=== PATIENT | female | born 1975 | race Caucasian/White ===

== ENCOUNTER 2018-03-13 14:59 | Outpatient (CLI) | END 2018-03-13 17:20 | disposition home or self-care (01) ==

== ENCOUNTER 2018-03-24 17:50 | Inpatient (IN) | END 2018-04-01 16:00 | disposition home or self-care (01) | DRG 765 ==

== ENCOUNTER 2019-04-10 10:02 | Inpatient (IN) | payer OTHER ==
[~2019-04-10] VITALS: Ht 157.5 cm; Wt 72.5 kg
[~2019-04-10 10:02] MED LIST: FER325 PO; FOLI-49 PO; PREN-6 PO
[2019-04-10] MEDS ORDERED: morphine 4 MG/ML VIAL IV STA (11:04)
[2019-04-10] MEDS ORDERED: ONDANSETRON 4 MG INJ IV STA (11:04)
--- NOTE | 2019-04-10 11:04 | ERD ---
ER Documentation Chief Complaint Chief Complaint LOWER ABDOMINAL PAIN HPI This is a 43-year-old female presents to the emergency department with abdominal pain. She indicated it began yesterday evening it was a cramping-like sensati on. However the pain has radiated to her right lower quadrant and significantly worsened. She states the pain is 10 out of 10 in intensity. Her past surgical history includes a section most recently 1 year ago. She states that since getting her menstrual cycles post section she does experience similar severe pain however it is most prominent in the suprapubic region and today it radiated to the right lower quadrant which worsened and therefore she came to the emergency department to be further evaluated. She did start her menstrual cycle yesterday. She denies any frequency urgency or dysuria. She has no alleviating or exacerbating factors to the pain. She states she has not experience flatulence or had a bowel movement in 12 hours. She has not experienced any emesis. She denies any chest pain or pressure. ROS All systems reviewed and are negative except as per history of present illness. Medications Home Meds Reported Medications Ibuprofen* (Ibuprofen*) 800 Mg Tab, 800 MG PO NEEDED PRN for PAIN, TAB 04/10/19 Docusate Sodium* (Colace*) 100 Mg Capsule, 200 MG PO Q24H PRN for CONSTIPATION, #30 CAP 04/10/19 Discontinued Reported Medications Folic Acid* (Folic Acid*) 1 Mg Tablet, 1 MG PO DAILY, TAB 03/24/18 Ferrous Sulfate* (Ferrous Sulfate*) 325 Mg Tabec, 325 MG PO DAILY, TAB 03/24/18 Vits #93-Iron Fum-FA ( Formula) 1 Each Tablet, 1 TAB PO DAILY, TAB 03/24/18 Allergies Allergies: Coded Allergies: No Known Drug Allergies (Verified Allergy, Unknown, 04/10/19) Uncoded Allergies: sea food (Adverse Reaction, Mild, 03/29/18) diarrha, stomache pain Physical Exam Vitals Vital Signs Date Temp Pulse Resp B/P (MAP) Pulse Ox O2 O2 Flow FiO2 Time Delivery Rate 04/10/19 98.0 87 18 113/63 100 Room Air 12:42 (80) 04/10/19 98.0 80 18 133/71 99 10:06 (91) Physical Exam Constitutional:Well-developed. Well-nourished. Patient appears to be in discomfort secondary to pain HEENT:Normocephalic. Atraumatic.Pupils were equal round reactive to light. Moist mucous membranes.No tonsillar exudates. Neck: No nuchal rigidity. No lymphadenopathy. No posterior cervical spine tenderness or step-offs. Respiratory: Not using accessory muscles of respiration.Lungs were clear to auscultation bilaterally. No rhonchi. No rales. No wheezing. Cardiovascular: Regular rate regular rhythm.No murmurs. No rubs were appreciated.S1, S2 normal. Distal pulses are palpable 2+ bilaterally. GI: Abdomen was soft. Right lower quadrant tenderness. Non Distended. No pulsatile abdominal masses or bruits. No rebound. No guarding. Bowel sounds were present and normal. Muscle skeletal: Full range of motion of both the upper and lower extremities bilaterally.Normal muscle tone.No assymetrical calf tenderness or swelling. Skin: No petechia, no purpura. No lesions on the palms or the soles of the feet. No maculopapular rash. NEURO: Patient was alert, awake, orientated x3.No facial droop. Gait observed and normal with no ataxia.Speech had regular rate and rhythm. No focal neurological deficits. Result Diagram: 04/10/19 1052 04/10/19 1052 Results 24 hrs Laboratory Tests Test 04/10/19 10:52 04/10/19 11:10 04/10/19 11:11 White Blood Count 7.1 10^3/ul Red Blood Count 4.69 10^6/ul Hemoglobin 13.7 g/dl Hematocrit 41.5 % Mean Corpuscular Volume 88.5 fl Mean Corpuscular Hemoglobin 29.2 pg Mean Corpuscular 33.0 g/dl Hemoglobin Concent Red Cell Distribution Width 12.9 % Platelet Count 248 10^3/UL Mean Platelet Volume 9.8 fl Immature Granulocytes % 0.300 % Neutrophils % 72.9 % Lymphocytes % 20.7 % Monocytes % 3.7 % Eosinophils % 1.8 % Basophils % 0.6 % Nucleated Red Blood Cells % 0.0 /100WBC Immature Granulocytes # 0.020 10^3/ul Neutrophils # 5.1 10^3/ul Lymphocytes # 1.5 10^3/ul Monocytes # 0.3 10^3/ul Eosinophils # 0.1 10^3/ul Basophils # 0.0 10^3/ul Nucleated Red Blood Cells # 0.0 10^3/ul Prothrombin Time 13.5 Sec Prothrombin Time Ratio 1.1 INR International Normalized Ratio 1.02 Activated Partial Thromboplast 30.8 Sec Time Sodium Level 142 mmol/L Potassium Level 3.6 mmol/L Chloride Level 109 mmol/L Carbon Dioxide Level 24 mmol/L Anion Gap 9 Blood Urea Nitrogen 11 mg/dl Creatinine 0.56 mg/dl Est Glomerular Filtrat Rate mL/min > 60 mL/min Glucose Level 113 mg/dl Calcium Level 9.0 mg/dl Total Bilirubin 0.5 mg/dl Direct Bilirubin 0.00 mg/dl Indirect Bilirubin 0.5 mg/dl Aspartate Amino Transf (AST/SGOT) 26 IU/L Alanine 30 IU/L Aminotransferase (ALT/SGPT) Alkaline Phosphatase 93 IU/L Troponin I < 0.012 ng/ml Total Protein 7.4 g/dl Albumin 4.1 g/dl Globulin 3.30 g/dl Albumin/Globulin Ratio 1.24 Amylase Level 92 U/L Lipase 97 U/L Bedside Urine pH (LAB) 8.5 Bedside Urine Protein (LAB) 1+ Bedside Urine Glucose (UA) Negative Bedside Urine Ketones (LAB) 1+ Bedside Urine Blood 3+ Bedside Urine Nitrite (LAB) Negative Bedside Urine Leukocyte Esterase Negative (L POC Beta HCG, Qualitative NEGATIVE Current Medications Medications Dose Sig/Cayla Start Time Status Last (Trade) Ordered Route PRN Stop Time Admin Dose Reason Admin Morphine 4 mg ONCE STAT 04/10/19 DC 04/10/19 Sulfate IV 11:04 11:13 (morphine) 04/10/19 11:06 Ondansetron 4 mg ONCE STAT 04/10/19 DC 04/10/19 HCl (Zofran IV 11:04 11:12 Inj) 04/10/19 11:06 Sodium 100 ml @ ud STK-MED 04/10/19 DC Chloride ONCE .ROUTE 11:46 04/10/19 11:47 Iohexol 150 ml STK-MED 04/10/19 DC (Omnipaque ONCE .ROUTE 11:46 300mg/ ml) 04/10/19 11:47 Clindamycin 50 ml @ 50 ONCE IVPB 04/10/19 HCl/ mls/hr 13:00 Dextrose 04/10/19 13:59 100 ml @ ONCE ONCE 04/10/19 Metronidazole 100 mls/hr IVPB 13:00 04/10/19 13:59 Ondansetron 4 mg BRIDGE ORDER 04/10/19 HCl (Zofran PRN IV 13:30 Inj) NAUSEA/VOMITI 04/11/19 13:29 NG 650 mg ER BRIDGE 04/10/19 Acetaminophen PRN PO 13:30 (Tylenol .MILD PAIN 04/11/19 13:29 Tab) 1-3 OR TEMP Procedures/MDM This patient presented to the emergency department with abdominal pain and was seen and evaluated by myself. My differential diagnosis included but was not limited to abdominal aortic aneurysm, appendicitis, pancreatitis, perforated peptic ulcer, perforated viscus, Boerhaaves syndrome or visceral pain such as diverticulitis, DKA, esophagitis, hepatitis or bowel obstruction. The patient was placed on a monitoring engineer, continuous pulse oximetry, and IV access was established by nursing staff. 12 Lead EKG tracing ordered and reviewed by myself showed: Normal sinus rhythm of 65 bpm and no arrhythmia. ND interval normal. QRS duration normal. No ST segment elevation No ST segment depression. No changes consistent with acute ischemia. The patient was in a significant amount of tenderness with voluntary guarding on her abdominal examination therefore I did feel is necessary to obtain a CT scan of the abdomen that was reviewed by the radiologist and indicated the followin. Thick-walled 4.3 x 5.8 x 3.8 cm right adnexal fluid attenuating structure with surrounding inflammatory changes suspicious for tubo-ovarian abscess. Please correlate for additional findings of pelvic infection. No free air. 2. Nonspecific minimal fat stranding about the appendix, as seen elsewhere in the lower abdomen/pelvis, without appendiceal dilatation, wall thickening, or appendicolith. If there is clinical concern for appendicitis, continued follow- up advised. At this time I did perform a bedside pelvic ultrasound. There was a female nurse graphics artist present. Endocervical specimens were obtained for gonorrhea and chlamydia. There was no cervical motion tenderness. No adnexal tenderness on the left but there was right adnexal tenderness. No abnormal urethral discharge. I did obtain blood cultures and also administered antibiotics. I have spoken with the KNIFE GRINDER Dr. Brandt who stated he will come to be consulted on the patient to admit the patient to medicine. My clinical suspicion was low for pelvic inflammatory disease as a result of STDs as the patient is sexually active with only one partner but her . She will receive IV clindamycin and Flagyl. Critical Care: Time: 45 minutes Treatments/Evaluations: Close monitoring and treatment of unstable vital signs, cardiorespiratory, and neurologic status, while maintaining tight balance of fluid, respiratory, and cardiac interventions. Time does not include performing any of the above billable procedures. Departure Diagnosis: Primary Impression: Tubo-ovarian abscess Condition: BRONWYN Larson MD Apr 10, 2019 11:04
[2019-04-10] MEDS ORDERED: DOCU-144 PO (11:43)
[2019-04-10] MEDS ORDERED: IBUP-1545 PO (11:43)
[2019-04-10] MEDS ORDERED: SOD CHLORIDE 0.9% 100 ML ONE (11:46)
[2019-04-10] MEDS ORDERED: IOHEXOL 300MG/ML 150 ML BTL ONE (11:46)
[2019-04-10] MEDS ORDERED: metroNIDAZOLE 500 MG/NS (PMX) 100 ML IVPB ONE (13:00)
[2019-04-10] MEDS ORDERED: CLINDAMYCIN 600 MG/D5W (PMX) 50 ML IVPB SCH (13:00)
[2019-04-10] MEDS ORDERED: ONDANSETRON 4 MG INJ IV PRN ×2 (13:30→14:00)
[2019-04-10] MEDS ORDERED: ACETAMINOPHEN 325 MG TAB PO PRN ×2 (13:30→14:00)
--- NOTE | 2019-04-10 13:49 | HP ---
Date/Time of Note Date/Time of Note DATE: 04/10/19 TIME: 13:49 Assessment/Plan VTE Prophylaxis Pharmacological prophylaxis: NA/contraindicated Pharm contraindication: low risk/ambulating Lines/Catheters [facility] Saline Lock Assessment/Plan Hospital Course ,43-year-old female who denied any significant past medical history, who came to the emergency room with chief complaint of abdominal pain with CT evidence of tubo-ovarian abscess, who will be admitted to inpatient setting for further treatment and evaluation. 1. Abdominal pain. Etiology unclear. CT evidence of tubo-ovarian abscess, but no leukocytosis or febrile illness. Start the patient on Unasyn plus doxycycline. Obtain gynecology consult. Continue pain control. 2. Constipation. Start a bowel regimen. Plan: The patient will be admitted to inpatient medical surgical floor. The patient will be started on a regular diet. The patient will be started on DVT prophylaxis. The patient will remain a full code. Activities will be as tolerated. The rest of the patient's management will be based on the clinical course, inputs from consultants, and the results of diagnostic studies. Based on the patient's clinical presentation, she most probably requires at least 2 midnights' stay for further management and evaluation of her clinical presentation. Patient was seen in collboration with Dr. Diaz. Result Diagram: 04/10/19 1052 04/10/19 1052 Results 24hrs Laboratory Tests Test 04/10/19 10:52 04/10/19 11:10 04/10/19 11:11 White Blood Count 7.1 Red Blood Count 4.69 # Hemoglobin 13.7 Hematocrit 41.5 # Mean Corpuscular Volume 88.5 Mean Corpuscular Hemoglobin 29.2 Mean Corpuscular Hemoglobin Concent 33.0 Red Cell Distribution Width 12.9 Platelet Count 248 # Mean Platelet Volume 9.8 Immature Granulocytes % 0.300 Neutrophils % 72.9 Lymphocytes % 20.7 Monocytes % 3.7 Eosinophils % 1.8 Basophils % 0.6 Nucleated Red Blood Cells % 0.0 Immature Granulocytes # 0.020 Neutrophils # 5.1 Lymphocytes # 1.5 Monocytes # 0.3 Eosinophils # 0.1 Basophils # 0.0 Nucleated Red Blood Cells # 0.0 Prothrombin Time 13.5 Prothrombin Time Ratio 1.1 INR International Normalized Ratio 1.02 Activated Partial Thromboplast Time 30.8 Sodium Level 142 Potassium Level 3.6 Chloride Level 109 Carbon Dioxide Level 24 Anion Gap 9 Blood Urea Nitrogen 11 Creatinine 0.56 Est Glomerular Filtrat Rate mL/min > 60 Glucose Level 113 Calcium Level 9.0 Total Bilirubin 0.5 Direct Bilirubin 0.00 Indirect Bilirubin 0.5 Aspartate Amino Transf (AST/SGOT) 26 Alanine Aminotransferase (ALT/SGPT) 30 Alkaline Phosphatase 93 Troponin I < 0.012 Total Protein 7.4 Albumin 4.1 Globulin 3.30 H Albumin/Globulin Ratio 1.24 Amylase Level 92 Lipase 97 Bedside Urine pH (LAB) 8.5 Bedside Urine Protein (LAB) 1+ H Bedside Urine Glucose (UA) Negative Bedside Urine Ketones (LAB) 1+ H Bedside Urine Blood 3+ H Bedside Urine Nitrite (LAB) Negative Bedside Urine Leukocyte Esterase (L Negative POC Beta HCG, Qualitative NEGATIVE HPI/ROS Admit Date/Time Admit Date/Time Hx of Present Illness Reason for admission: Abdominal pain. Consultants 1. Gynecology. This is a 43-year-old female who denied any significant past medical history who presented to the emergency room with chief complaint of abdominal pain. The patient verbalized that she has been having abdominal pain on and off for the past 6 months or so. Her pain became so severe to the point where she cannot tolerate and she decided to come to the emergency room. The patient verbalized that she had a approximately 1 year ago for delivery of twins. After delivery, the patient was having regular menstrual cycles. However, for the past 6 months, she was having significant pain associated with her menstrual cycles. The patient denied any associated fevers. She complained of nausea and constipation. She denied any vomiting. She denied any history of sexually transmitted diseases. In the emergency room, the patient underwent a CT scan of the abdomen and pelvis that was showing thick-walled 4.3 x 5.8 x 3.8 cm right adnexal fluid with surrounding inflammatory changes suspicious for tubo-ovarian abscess. Patient did not have any leukocytosis. The patient was afebrile. She was treated with a IV fluids, IV clindamycin, and IV Flagyl. ROS Constitutional: nausea Eyes: no complaints ENT: no complaints Respiratory: no complaints Cardiovascular: no complaints Gastrointestinal: pain, constipation Genitourinary: flank pain Musculoskeletal: no complaints Skin: no complaints Neurologic: no complaints Endocrine: no complaints Lymphatic: no complaints Psychological: no complaints Immunologic: no complaints PMH/Family/Social Past Medical History 1. Gestational diabetes. 2. induced hypertension. Medications Current Medications Clindamycin HCl/ Dextrose 50 ml @ 50 mls/hr ONCE IVPB ; Start 04/10/19 at 13:00; Stop 04/10/19 at 13:59 Metronidazole 100 ml @ 100 mls/hr ONCE ONCE IVPB Last administered on 04/10/19at 13:42; Admin Dose 100 MLS/HR; Start 04/10/19 at 13:00; Stop 04/10/19 at 13:59 Ondansetron HCl (Zofran Inj) 4 mg BRIDGE ORDER PRN IV NAUSEA/VOMITING; Start 04/10/19 at 13:30; Stop 04/11/19 at 13:29 Acetaminophen (Tylenol Tab) 650 mg ER BRIDGE PRN PO .MILD PAIN 1-3 OR TEMP; Start 04/10/19 at 13:30; Stop 04/11/19 at 13:29 Coded Allergies: No Known Drug Allergies (Verified Allergy, Unknown, 04/10/19) Uncoded Allergies: sea food (Adverse Reaction, Mild, 03/29/18) diarrha, stomache pain Past Surgical History . Family History Significant Family History: no pertinent family hx Social History The patient lives at home with family. Homemaker. Alcohol Use: none Smoking Status: Never smoker Drug Use: none Exam/Review of Systems Vital Signs Vitals Vital Signs Date Temp Pulse Resp B/P (MAP) Pulse Ox O2 O2 Flow FiO2 Time Delivery Rate 04/10/19 98.0 87 18 113/63 100 Room Air 12:42 (80) Exam Exam General: Adequately build 43 year-old female lying in bed in no apparent distress. HEENT: Normocephalic, atraumatic. Eyes: Anicteric sclerae, conjunctivae clear. ENT: Nasal septum midline, oral mucosa is moist. Neck supple, no JVD noticed. Respiratory: Bilaterally clear breath sounds. No use of accessory muscles of respiration. No adventitious breath sounds. Cardiovascular: S1, S2 heard. Regular rate and rhythm. Abdomen: Soft and nondistended. Tenderness in the right lower quadrant. Bowel sounds positive in all 4 quadrants. Genitourinary: Deferred. Extremities: No cyanosis, no clubbing, no edema. Peripheral pulses palpable. Neurologic: Cranial nerves II through XII grossly intact. The patient is awake, alert, and oriented. Skin: Normal skin turgor. No skin rashes. Additional Comments CT Abdomen and Pelvis IMPRESSION: 1. Thick-walled 4.3 x 5.8 x 3.8 cm right adnexal fluid attenuating structure with surrounding inflammatory changes suspicious for tubo-ovarian abscess. Please correlate for additional findings of pelvic infection. No free air. 2. Nonspecific minimal fat stranding about the appendix, as seen elsewhere in the lower abdomen/pelvis, without appendiceal dilatation, wall thickening, or appendicolith. ZECHARIAH GARCIA NP Apr 10, 2019 13:49
[2019-04-10] MEDS ORDERED: BISACODYL (EC) 5 MG TAB PO PRN (14:00)
[2019-04-10] MEDS ORDERED: NACL 0.9% 3 ML SYG IV SCH (14:00)
[2019-04-10 14:50] VITALS: BP 139/70; PULSE 86; RESP 18
[2019-04-10 15:00] VITALS: Ht 157.5 cm; Wt 72.5 kg
[2019-04-10] MEDS: HYDROCODONE/APAP (5/325) TAB PO PRN (15:48)
[2019-04-10] MEDS: AMPICILLIN/SULB 3 GM/NS (PMX) 100 ML IVPB SCH ×2 (18:03→23:07)
--- NOTE | 2019-04-10 18:03 | QN ---
Documentation Comment [employer] Consult Thank you for consulting with us 43 yo with abdominal pain mostly above the umbilicus Currently moderate amount of pain Gen NAD Abd soft ND Tender in deep palpation No Rebound Genitalia She is on her period, No CMT -->Ultrasound reviewed,Thickened Endometrium and ovarian cyst WBC 7.1 A/p Given NL WBC No CMT No Uterine tenderness or lower abdominal tenderness,The Dx of PID is unlikely, However given the incidental finding and Thickened endometrium and ovarian cyst needs further evaluation by D&C&Hysteroscopy and laparoscopy that can be done as an Outpatient and with a Vice President Of Finance in her network, Thickened Endometrium requires biopsy to R/o Cancer and Endometrial Hyperplasia and Patient unde rstands that she needs to follow it up with her Vice President Of Finance Any further question,please follow up with transportation services representative Laborist Thank you MUSTAPHA CHINCHILLA M.D. Apr 10, 2019 18:03
[2019-04-10 19:37] VITALS: BP 121/68; PULSE 100; RESP 18
[2019-04-10] MEDS: DOXYCYCLINE 100 MG in SOD CHLORIDE 0.9% 250 ML IVPB SCH (21:14)
[2019-04-10] MEDS: POLYETHYLENE GLYCOL 17 GM PACKET PO SCH (21:15)
[2019-04-11 01:15] VITALS: BP 101/56; PULSE 98; RESP 18
[2019-04-11] MEDS: AMPICILLIN/SULB 3 GM/NS (PMX) 100 ML IVPB SCH (06:27)
[2019-04-11] MEDS: HYDROCODONE/APAP (5/325) TAB PO PRN (06:47)
[2019-04-11] MEDS: POLYETHYLENE GLYCOL 17 GM PACKET PO SCH ×2 (08:31→20:27)
[2019-04-11 08:38] VITALS: BP 105/57; PULSE 89; RESP 14
[2019-04-11] MEDS: DOXYCYCLINE 100 MG in SOD CHLORIDE 0.9% 250 ML IVPB SCH (09:56)
--- NOTE | 2019-04-11 11:01 | PN ---
Date/Time of Note Date/Time of Note DATE: 04/11/19 TIME: 10:57 Assessment/Plan VTE Prophylaxis Risk score (from Ns)>0 risk: 1 SCD applied (from Nsg): Yes Pharmacological prophylaxis: NA/contraindicated Pharm contraindication: low risk/ambulating Lines/Catheters [facility]from [facility] Saline Lock Urinary Cath still in place: No Assessment/Plan Hospital Course SUBJECTIVE: Continues to complain of abdominal pain. Complains of too much flatus. OBJECTIVE: Physical Exam General: Adequately build 43 year-old female lying in bed in no apparent distress. HEENT: Normocephalic, atraumatic. Eyes: Anicteric sclerae, conjunctivae clear. ENT: Nasal septum midline, oral mucosa is moist. Neck supple, no JVD noticed. Respiratory: Bilaterally clear breath sounds. No use of accessory muscles of respiration. No adventitious breath sounds. Cardiovascular: S1, S2 heard. Regular rate and rhythm. Abdomen: Soft and nondistended. Diffuse tenderness. Genitourinary: Deferred. Extremities: No cyanosis, no clubbing, no edema. Peripheral pulses palpable. Neurologic: Cranial nerves II through XII grossly intact. The patient is awake, alert, and oriented. Skin: Normal skin turgor. No skin rashes. Labs & Vitals per chart ASSESSMENT & PLAN 43-year-old female who denied any significant past medical history, who came to the emergency room with chief complaint of abdominal pain with CT evidence of tubo-ovarian abscess, who will be admitted to inpatient setting for further treatment and evaluation. 1. Abdominal pain. Etiology unclear. CT evidence of tubo-ovarian abscess, but no leukocytosis or febrile illness. S/P gynecology evaluation with no evidence of any cervical motion tenderness. Patient has chronic constipation and takes Colace on a regular basis with minimal help. Continue bowel regimen. Avoid opioids. 2. Right ovarian cyst. Status post evaluation by gynecology. Needs outpatient gynecological follow-up. 3. Fluids, electrolytes, and nutrition. Regular diet. 4. DVT prophylaxis. Bilateral SCDs. Ambulation. 5. Plan. Continue bowel regimen. Avoid opioids. If clinically improved, the patient will be discharged home. The patient was seen in collaboration with Dr. Diaz. Result Diagram: 04/11/19 0443 04/11/19 0442 Results 24hrs Laboratory Tests Test 04/10/19 11:10 04/10/19 11:11 04/11/19 04:42 04/11/19 04:43 Bedside Urine pH 8.5 (LAB) Bedside Urine 1+ H Protein (LAB) Bedside Urine Negative Glucose (UA) Bedside Urine 1+ H Ketones (LAB) Bedside Urine Blood 3+ H Bedside Urine Negative Nitrite (LAB) Bedside Urine Negative Leukocyte Esterase (L POC Beta HCG, NEGATIVE Qualitative Sodium Level 141 Potassium Level 3.7 Chloride Level 109 Carbon Dioxide Level 26 Anion Gap 6 Blood Urea Nitrogen 8 Creatinine 0.63 Est Glomerular > 60 Filtrat Rate mL/min Glucose Level 119 Calcium Level 8.2 L Phosphorus Level 3.1 Magnesium Level 1.8 Total Bilirubin 0.5 Direct Bilirubin 0.00 Indirect Bilirubin 0.5 Aspartate Amino 22 Transf (AST/SGOT) Alanine 27 Aminotransferase (AL T/SGPT) Alkaline Phosphatase 74 Total Protein 6.4 # Albumin 3.3 Globulin 3.10 Albumin/Globulin 1.06 Ratio Triglycerides Level 72 Cholesterol Level 130 LDL Cholesterol, 84 Calculated HDL Cholesterol 32 L Cholesterol/HDL 4.0 Ratio White Blood Count 11.5 #H Red Blood Count 4.14 L Hemoglobin 12.1 Hematocrit 37.4 Mean Corpuscular 90.3 Volume Mean Corpuscular 29.2 Hemoglobin Mean Corpuscular 32.4 Hemoglobin Concent Red Cell 13.2 Distribution Width Platelet Count 237 Mean Platelet Volume 10.4 Immature 0.400 Granulocytes % Neutrophils % 82.2 H Lymphocytes % 12.6 L Monocytes % 4.2 Eosinophils % 0.3 Basophils % 0.3 Nucleated Red Blood 0.0 Cells % Immature 0.050 H Granulocytes # Neutrophils # 9.4 H Lymphocytes # 1.4 Monocytes # 0.5 Eosinophils # 0.0 Basophils # 0.0 Nucleated Red Blood 0.0 Cells # Exam/Review of Systems Exam Vitals Vital Signs Date Temp Pulse Resp B/P (MAP) Pulse Ox O2 O2 Flow FiO2 Time Delivery Rate 04/11/19 98.4 89 14 105/57 100 Room Air 08:38 (73) Intake and Output 04/10/19 04/10/19 04/11/19 1515:00 23:00 07:00 IntakeIntake Total 120 ml 790 ml 350 ml BalanceBalance 120 ml 790 ml 350 ml Results Results 24hrs Laboratory Tests Test 04/10/19 11:10 04/10/19 11:11 04/11/19 04:42 04/11/19 04:43 Bedside Urine pH 8.5 (LAB) Bedside Urine 1+ H Protein (LAB) Bedside Urine Negative Glucose (UA) Bedside Urine 1+ H Ketones (LAB) Bedside Urine Blood 3+ H Bedside Urine Negative Nitrite (LAB) Bedside Urine Negative Leukocyte Esterase (L POC Beta HCG, NEGATIVE Qualitative Sodium Level 141 Potassium Level 3.7 Chloride Level 109 Carbon Dioxide Level 26 Anion Gap 6 Blood Urea Nitrogen 8 Creatinine 0.63 Est Glomerular > 60 Filtrat Rate mL/min Glucose Level 119 Calcium Level 8.2 L Phosphorus Level 3.1 Magnesium Level 1.8 Total Bilirubin 0.5 Direct Bilirubin 0.00 Indirect Bilirubin 0.5 Aspartate Amino 22 Transf (AST/SGOT) Alanine 27 Aminotransferase (AL T/SGPT) Alkaline Phosphatase 74 Total Protein 6.4 # Albumin 3.3 Globulin 3.10 Albumin/Globulin 1.06 Ratio Triglycerides Level 72 Cholesterol Level 130 LDL Cholesterol, 84 Calculated HDL Cholesterol 32 L Cholesterol/HDL 4.0 Ratio White Blood Count 11.5 #H Red Blood Count 4.14 L Hemoglobin 12.1 Hematocrit 37.4 Mean Corpuscular 90.3 Volume Mean Corpuscular 29.2 Hemoglobin Mean Corpuscular 32.4 Hemoglobin Concent Red Cell 13.2 Distribution Width Platelet Count 237 Mean Platelet Volume 10.4 Immature 0.400 Granulocytes % Neutrophils % 82.2 H Lymphocytes % 12.6 L Monocytes % 4.2 Eosinophils % 0.3 Basophils % 0.3 Nucleated Red Blood 0.0 Cells % Immature 0.050 H Granulocytes # Neutrophils # 9.4 H Lymphocytes # 1.4 Monocytes # 0.5 Eosinophils # 0.0 Basophils # 0.0 Nucleated Red Blood 0.0 Cells # Medications Medication Current Medications Polyethylene Glycol (Miralax) 17 gm BID PO Last administered on 04/11/19at 08:31; Admin Dose 17 GM; Start 04/10/19 at 21:00 IV Flush (NS 3 ml) 3 ml PER PROTOCOL IV ; Start 04/10/19 at 14:00 Ondansetron HCl (Zofran Inj) 4 mg Q6H PRN IV NAUSEA/VOMITING; Start 04/10/19 at 14:00 Acetaminophen (Tylenol Tab) 650 mg Q6H PRN PO .PAIN 1-3 OR TEMP; Start 04/10/19 at 14:00 Bisacodyl (Dulcolax) 10 mg DAILY PRN PO CONSTIPATION; Start 04/10/19 at 14:00 Lactulose (Lactulose Enema) 100 ml ONCE ONCE OK ; Start 04/11/19 at 11:00; Stop 04/11/19 at 11:01; Status UNV ZECHARIAH GARCIA NP Apr 11, 2019 11:01
[2019-04-11] MEDS ORDERED: LACTULOSE ENEMA 1,000 ML BTL PR ONE (12:30)
[2019-04-11 15:11] VITALS: BP 116/63; PULSE 102; RESP 17
[2019-04-11 19:15] VITALS: BP 119/66; PULSE 112; RESP 18
[2019-04-12 02:05] VITALS: BP 133/75; PULSE 106; RESP 18
[2019-04-12 04:56] VITALS: PULSE 99
[2019-04-12 08:27] VITALS: BP 107/55; PULSE 89; RESP 18
[2019-04-12] MEDS: POLYETHYLENE GLYCOL 17 GM PACKET PO SCH (08:52)
[2019-04-12] MEDS ORDERED: POLY17PO6 PO (09:08)
[2019-04-12] MEDS ORDERED: DOCU-144 PO (09:08)
--- NOTE | 2019-04-12 09:12 | PDOCDIS ---
Discharge Instructions CONDITION [id number] Patient Condition: [id number] Stable HOME CARE INSTRUCTIONS: [id number] Diet Instructions: [id number] Regular FOLLOW UP/APPOINTMENTS Follow-up Plan Ignacio Solorzano MD Specialty: Internal Medicine Office Address: [facility] [address] [place], [place] [id number] Office OTHER ORDERS: Other Orders: 1. Take a regular, high-fiber diet as tolerated. 2. Resume activities as tolerated. 3. Follow-up with your primary care physician in 2 weeks. Have your primary care physician arrange for outpatient gynecology follow-up. 4. Please go to the nearest emergency room if you have significant abdominal pain, persistent nausea/vomiting, persistent fevers, or any other unusual signs/symptoms. 5. If you do not have a primary care physician, please call Dr. Ignacio Solorzano's office. 1. Bussey estee dieta regular, man en fibra segn lo tolerado. 2. Reanudar las actividades segn lo tolerado. 3. Marques un seguimiento con patel mdico de atencin primaria en 2 semanas. Pdale a patel mdico de atencin primaria que marques arreglos para el seguimiento ginecolgico ambulatorio. 4. Vaya a la luca de emergencias ms cercana si tiene dolor abdominal significativo, nuseas / vmitos persistentes, fiebres persistentes o cualquier otro signo / sntoma inusual. 5. Si no tiene un mdico de atencin primaria, llame a ZECHARIAH Perales NP Apr 12, 2019 09:11
--- NOTE | 2019-04-12 10:16 | DS ---
Date/Time of Note Date/Time of Note DATE: 04/12/19 TIME: 10:13 Discharge Summary Admission/Discharge Info Admit Date/Time Apr 10, 2019 at 13:06 Discharge Diagnosis 1. Constipation. 2. Right ovarian cyst. 3. History of gestational DM. 4. History of induced hypertension. Patient Condition: Stable Consults 1. Jose M Brandt MD, Gynecology. Procedures CT Abdomen & Pelvis IMPRESSION: 1. Thick-walled 4.3 x 5.8 x 3.8 cm right adnexal fluid attenuating structure with surrounding inflammatory changes suspicious for tubo-ovarian abscess. Please correlate for additional findings of pelvic infection. No free air. 2. Nonspecific minimal fat stranding about the appendix, as seen elsewhere in the lower abdomen/pelvis, without appendiceal dilatation, wall thickening, or appendicolith. If there is clinical concern for appendicitis, continued follow- up advised. Pelvic US IMPRESSION: 1. Mildly thickened endometrium. Etiology is uncertain. Continued follow-up with repeat exam 6 - 8 weeks to assess for the persistence of this finding is recommended. 2. 4.1 cm cystic solid nodule in the right ovary. This could reflect a resolving hemorrhagic cyst or endometrioma. Cystic solid mass or tumor cannot definitely be excluded. Close continued follow-up with repeat exam in 06-08 weeks to assess stability is recommended. 3. Left ovary not well visualized. Hx of Present Illness Reason for admission: Abdominal pain. Consultants 1. Gynecology. This is a 43-year-old female who denied any significant past medical history who presented to the emergency room with chief complaint of abdominal pain. The patient verbalized that she has been having abdominal pain on and off for the past 6 months or so. Her pain became so severe to the point where she cannot tolerate and she decided to come to the emergency room. The patient verbalized that she had a approximately 1 year ago for delivery of twins. After delivery, the patient was having regular menstrual cycles. However, for the past 6 months, she was having significant pain associated with her menstrual cycles. The patient denied any associated fevers. She complained of nausea and constipation. She denied any vomiting. She denied any history of sexually transmitted diseases. In the emergency room, the patient underwent a CT scan of the abdomen and pelvis that was showing thick-walled 4.3 x 5.8 x 3.8 cm right adnexal fluid with surrounding inflammatory changes suspicious for tubo-ovarian abscess. Patient did not have any leukocytosis. The patient was afebrile. She was treated with a IV fluids, IV clindamycin, and IV Flagyl. Hospital Course The patient was admitted to inpatient setting. Etiology of the patient's underlying abdominal pain was presumably thought to be secondary to the CT scan findings suggesting tubo-ovarian abscess. The patient was evaluated by gynecology and the director auto recommended that the patient less likely has any pelvic inflammatory disease as the patient's WBC was within normal limits and there was no cervical motion tenderness or uterine tenderness. However, the patient's pelvic ultrasound showed incidental finding of thickened endometrium and confirmed the presence of right ovarian cyst. This needs further evaluation by D&C and hysteroscopy and laparoscopy that can be done as outpatient. Once it was concluded that the patient has no underlying PID, the patient's antibiotics were discontinued. The patient was noticed to be constipated. The patient was started on a bowel regimen and the patient was given a single dose of edema with multiple bowel movements with improvement in the patient's abdominal pain. The patient was also menstruating at this time. Therefore, it was concluded that the patient's abdominal pain could have been contributed by her underlying dysmenorrhea as well as constipation. The patient takes Colace on an as needed basis at home. The patient was advised to take Colace regularly and the patient was also given a prescription for MiraLAX. The patient is non-diabetic. The patient's thyroid panel was within normal limits. If the patient continues to have constipation, the patient needs outpatient gastroenterology work-up. The patient is otherwise a relatively healthy female with no significant comorbidities. The patient was advised to follow-up with her primary care physician within the next 2 weeks and to arrange for outpatient gynecological follow-up. The patient had a stable hospital course. Discharge Instructions 1. Take a regular, high-fiber diet as tolerated. 2. Resume activities as tolerated. 3. Follow-up with your primary care physician in 2 weeks. Have your primary care physician arrange for outpatient gynecology follow-up. 4. Please go to the nearest emergency room if you have significant abdominal pain, persistent nausea/vomiting, persistent fevers, or any other unusual signs/symptoms. 5. If you do not have a primary care physician, please call Dr. Ignacio Solorzano's office. The patient verbalized understanding of her discharge instructions. At this time I would like to thank Dr. Brandt for seeing the patient and providing clinical recommendations. The patient was seen in collaboration with Dr. Diaz. Home Meds Active Scripts Docusate Sodium* (Colace*) 100 Mg Capsule, 100 MG PO DAILY, #30 CAP Prov:ZECHARIAH GARCIA PROGRAM DIRECTOR/MUSIC DIRECTOR 04/12/19 Polyethylene Glycol* (Miralax*) 17 Gm Powd.pack, 17 GM PO BID, #60 UNIT Prov:ZECHARIAH GARCIA PROGRAM DIRECTOR/MUSIC DIRECTOR 04/12/19 Discontinued Reported Medications Ibuprofen* (Ibuprofen*) 800 Mg Tab, 800 MG PO NEEDED PRN for PAIN, TAB 04/10/19 Docusate Sodium* (Colace*) 100 Mg Capsule, 200 MG PO Q24H PRN for CONSTIPATION, #30 CAP 04/10/19 Folic Acid* (Folic Acid*) 1 Mg Tablet, 1 MG PO DAILY, TAB 03/24/18 Ferrous Sulfate* (Ferrous Sulfate*) 325 Mg Tabec, 325 MG PO DAILY, TAB 03/24/18 Vits #93-Iron Fum-FA ( Formula) 1 Each Tablet, 1 TAB PO DAILY, TAB 03/24/18 Follow-up Plan Ignacio Solorzano MD Specialty: Internal Medicine Office Address: [address] [place] [address] Office Primary Care Provider Care Physician No Primary Time spent on discharge: > 30 minutes Pending Labs Laboratory Tests Test 04/12/19 04:33 White Blood Count 10.2 10^3/ul (4.8-10.8) Red Blood Count 4.01 10^6/ul (4.20-5.40) Hemoglobin 11.7 g/dl (12.0-16.0) Hematocrit 35.9 % (37.0-47.0) Mean Corpuscular Volume 89.5 fl (82.0-101.0) Mean Corpuscular Hemoglobin 29.2 pg (29.0-33.0) Mean Corpuscular Hemoglobin Concent 32.6 g/dl (32.0-37.0) Red Cell Distribution Width 13.2 % (11.5-14.5) Platelet Count 240 10^3/UL (140-415) Mean Platelet Volume 10.2 fl (7.4-10.4) Immature Granulocytes % 0.400 % (0.001-0.429) Neutrophils % 72.9 % (39.0-77.0) Lymphocytes % 20.9 % (15.0-51.0) Monocytes % 4.9 % (0.0-11.0) Eosinophils % 0.5 % (0.0-7.0) Basophils % 0.4 % (0.0-2.0) Nucleated Red Blood Cells % 0.0 /100WBC (0.0-0.0) Immature Granulocytes # 0.040 10^3/ul (0.0-0.031) Neutrophils # 7.5 10^3/ul (1.6-7.5) Lymphocytes # 2.1 10^3/ul (0.8-2.9) Monocytes # 0.5 10^3/ul (0.3-0.9) Eosinophils # 0.1 10^3/ul (0.0-0.5) Basophils # 0.0 10^3/ul (0.0-0.1) Nucleated Red Blood Cells # 0.0 10^3/ul (0.0-0.0) Sodium Level 142 mmol/L (135-144) Potassium Level 3.9 mmol/L (3.5-5.1) Chloride Level 109 mmol/L (97-110) Carbon Dioxide Level 25 mmol/L (21-31) Anion Gap 8 (5-13) Blood Urea Nitrogen 7 mg/dl (7-20) Creatinine 0.60 mg/dl (0.44-1.00) Est Glomerular Filtrat Rate mL/min > 60 mL/min (>60) Glucose Level 105 mg/dl (70-220) Calcium Level 8.5 mg/dl (8.4-10.2) Phosphorus Level 2.6 mg/dl (2.5-4.9) Magnesium Level 2.2 mg/dl (1.7-2.5) Thyroid Stimulating Hormone (TSH) 2.450 MIU/L (0.465-4.680) Free Thyroxine 1.04 ng/dl (0.64-1.79) ZECHARIAH GARCIA NP Apr 12, 2019 10:16
== END 2019-04-12 11:30 | disposition home or self-care (01) | DRG 392 ==
LOC: E/R 10:02 → MS1 13:06
PROVIDERS: ADMIT Internal Medicine; ATTEND Internal Medicine
DX: K59.00 Constipation, unspecified (principal); N83.201 Unspecified ovarian cyst, right side; N94.6 Dysmenorrhea, unspecified
CPT/HCPCS: 74177; 76830; 76856; 80048; 80053; 80061; 81001; 81003; 81025; 82150; 83036; 83690; 83735; 84100; 84439; 84443; 84484; 85025; 85610; 85651; 85730; 86140; 87070; 87210; 87591; 93005; 96374; 96375; J0295; J2270; J2405; J7050; Q9967